=== PATIENT | male | born 1950 | race Caucasian/White ===

== ENCOUNTER 2016-10-25 12:49 | Inpatient (IN) ==
[2016-10-25] MEDS ORDERED: SODIUM CHLORIDE 0.9% 500 ML IV STA (14:29)
[2016-10-25] MEDS ORDERED: LORazepam 2 MG/1 ML VIAL IV STA (14:31)
[2016-10-25 14:41] LABS: Basophils % 0.4 % (0.0-0.8); Eosinophils # 0.3 10*3/uL (0.0-0.87); Eosinophils % 3.6 % (0.00-10.9); Hematocrit 42.2 VOL% (42.0-52.0); Hemoglobin 14.4 GM/DL (14.0-18.0); Immature Granulocytes % 0.4 %; Immature Granulocytes Absolute 0.03 #; Lymphocytes # 2.1 10*3/uL (1.4-4.0); Lymphocytes % 26.5 % (21.2-54.2); Mean Corpuscular HGB Conc 34.1 GM/DL (32-36); Mean Corpuscular Hemoglobin 29 PG (27-34); Mean Corpuscular Volume 86.3 FL (87-102); Mean Platelet Volume 9.3 FL (9.6-12.0); Monocytes # 0.6 10*3/uL (0.11-0.8); Monocytes % 7.6 % (1.7-12.7); Neutrophils # 4.9 10*3/uL (1.4-7.4); Neutrophils % 61.5 % (38.7-73.9); Platelet Count 237 T/CUMM (130-400); Red Blood Count 4.89 MC/CUMM (3.8-5.5); Red Cell Distribution Width 13.3 % (9.3-17.3)
--- NOTE | 2016-10-25 14:51 | Emergency Department Note ---
Ivan Levi Brittany, am scribing for, and in the presence of, Seth Nicole MD 14:37. Corey Levi Charles R, MD, personally performed the services described in this documentation, ascribed by Regi Love in my presence, and it is both accurate and complete 451 . Arrival - Arrival Chief Complaint: Nausea/Vomiting/Diarrhea Stated Complaint: nausea, vomiting, chills, pain, insomnia ED Nursing Triage Note: med withdrawal. +n/v, pain and chills onset monday. Mode of Arrival: Wheelchair Limitations: No Limitations Source: Patient, RN Notes Reviewed - History of Present Illness HPI Narrative: Patient is a 66 y/o white male presenting to the ED with c/o medication withdrawal which onset 2 days ago. Patient states that he was taking Suboxone and Ativan, but on Monday, October 23 he decided to quit taking both of these medications cold . He reports that he was on these two medications for quite some time and on Monday decided that he wanted to stop. He reports having chills, tremors of bilateral hands, and N/V. He denies having had any hallucinations or homicidal/suicidal ideation. Patient states that he was taking these medications r/t Chronic Pain. He states that he has been to rehabilitation center x2 in the past notably at [place] and [place], but he states "they didn't work." Patient reports history of taking Lortabs, but "I quit them before." After history and physical patient's family pulled us aside outside of the room to give more background information concerning patient's current situation. His daughter reports that back in March of 2016 when patient was found to have PNA she found out about his taking Suboxone. She states that patient has had a long standing history of substance abuse r/t depression. She notes that she has only been aware of the Suboxone, Ativan, and Lortab, but she and her mother are unsure as to what he could have in his home due to him living alone and his being secretive. She goes on to state that patient has had lack of hygiene, his home is disheveled appearing, noting he is very depressed. No other complaint/pain. Onset (ago): day(s) (2) Consistency: constant Allergies/Adverse Reactions: Allergies Allergy/AdvReac Type Severity Reaction Status Date / Time No Known Allergies Allergy Unverified 03/27/16 19:38 Home Medications: Home Medications Medication Instructions Recorded Confirmed Type Buprenorphine HCl/Naloxone HCl 1 each SL TID PRN 03/28/16 10/25/16 History [Buprenorphn-Naloxn 2-0.5 mg Sl] ALPRAZolam [Alprazolam] 1 mg PO QID PRN 10/25/16 10/25/16 History Cyclobenzaprine HCl 10 mg PO TID PRN 10/25/16 10/25/16 History SUMAtriptan TAB [Imitrex Tab] 100 mg PO ONCE PRN 10/25/16 10/25/16 History cloNIDine TAB [Catapres Tab] 0.3 mg PO BEDTIME 10/25/16 10/25/16 History Review of System - Review of System 12 point system: reviewed and no additional remarkable complaints except as stated - Review of System Constitutional: Present: chills. Absent: fever Eyes: Absent: vision change Head/Ears/Nose/Throat: Absent: nasal drainage, sore throat Respiratory: Absent: respiratory distress Cardiovascular: Absent: chest pain Gastrointestinal: Present: nausea, vomiting. Absent: abdominal pain, diarrhea Genitourinary male: Absent: urgency, dysuria, frequency Musculoskeletal: Absent: arm pain, back pain, leg pain, neck pain Skin: Absent: rash Neurological: Absent: headache Psychiatric: Absent: anxiety, depression, suicidal thoughts, homicidal thoughts , auditory hallucinations, visual hallucinations Medical,Surgical,& Family Hx - Medical History Cardio: History of: Hypertension Psychological: History of: Psychiatric/Substance Abuse Tx (was treated for pain medication habituation in the past) - Family History Family History: Reports;: Family Cancer - Social History Smoking Status: Never smoker Frequency of Alcohol Use: None Type of Drug Use: None Exam Vital Signs: Vital Signs Temperature 97.6 F 10/25/16 14:53 Pulse Rate 58 L 10/25/16 16:01 Respiratory Rate 10 L 10/25/16 16:01 Blood Pressure 136/73 10/25/16 16:01 O2 Sat by Pulse Oximetry 100 10/25/16 16:01 - General General appearance: alert, in no apparent distress, other (disheveled appearing white male, shaky) - Head Head exam: Present: atraumatic, normocephalic. Absent: normal inspection ( temporal wasting) - Eye Eye exam: Present: PERRL, EOMI. Absent: normal appearance (sunken orbits bilaterally) - ENT ENT exam: Present: normal exam, normal oropharynx - Neck Neck exam: Present: normal inspection, full ROM, trachea midline - Chest Chest inspection: Present: normal inspection, symmetric chest wall rise - Respiratory Respiratory exam: Present: normal lung sounds bilaterally - Cardiovascular Cardiovascular exam: Present: normal rhythm, tachycardia, normal heart sounds. Absent: regular rate - Abdominal Exam Abdominal exam: Present: soft, normal bowel sounds. Absent: tenderness - Extremities Exam Extremities exam: Absent: normal inspection (asterisks of bilateral hands) - Back Exam Back exam: Present: normal inspection - Neurological Exam Neurological exam: Present: alert, oriented X3, CN II-XII intact, other ( asterisks of bilateral hands). Absent: motor sensory deficit - Psychiatric Psychiatric exam: Present: normal affect, normal mood - Skin Skin exam: Present: warm (afebrile), dry, other (piloerection of the skin) Course - Consultations Consultation #1: Hospitalist will admit patient Time: 16:55 Results - Labs CBC & BMP: 10/25/16 14:30 10/25/16 14:30 Lab Results: I have reviewed the patients labs Labs: Laboratory Tests 10/25/16 14:30 WBC 8.0 RBC 4.89 Hgb 14.4 Hct 42.2 MCV 86.3 L MCH 29 MCHC 34.1 RDW 13.3 Plt Count 237 MPV 9.3 L Neut % (Auto) 61.5 Lymph % (Auto) 26.5 [place] % (Auto) 7.6 Eos % (Auto) 3.6 Baso % (Auto) 0.4 Neut # (Auto) 4.9 Lymph # (Auto) 2.1 [place] # (Auto) 0.6 Eos # (Auto) 0.3 Baso # (Auto) 0.0 Immature Gran % 0.4 Nucleated RBC % 0.0 Immature Gran # 0.03 Nucleated RBCs # 0.00 Laboratory Tests 10/25/16 10/25/16 14:30 14:30 INR 1.0 PT Patient/Control Mix 10.2 Salicylates < 2.8 L Laboratory Tests 10/25/16 10/25/16 14:30 14:30 Sodium 138 Potassium 4.0 Chloride 101 Carbon Dioxide 25 Anion Gap 16.0 H BUN 15 Creatinine 1.20 GFR Calculation 75 BUN/Creatinine Ratio 12.00 Glucose 97 Calculated Osmolality 275.7 Calcium 9.3 Magnesium 1.9 Total Bilirubin 1.10 H AST 11 ALT 21 Alkaline Phosphatase 86 Troponin I < 0.015 Total Protein 7.0 Albumin 3.9 Globulin 3.1 Albumin/Globulin Ratio 1.2 Free T4 1.42 TSH 3rd Generation 0.724 Prolactin 9.3 Serum Alcohol < 15 L Laboratory Tests 10/25/16 10/25/16 14:30 14:30 ESR Westergren 36 H Ammonia 19 Laboratory Tests 10/25/16 14:30 Urine Color Yellow Urine Appearance Clear Urine pH 8.0 Ur Specific [place] 1.008 Urine Protein Negative Urine Glucose (UA) Negative Urine Ketones 5 Urine Blood Moderate Urine Nitrate Negative Urine Bilirubin Negative Urine Urobilinogen < 2.0 H Urine Leukocytes Negative Urine RBC <1 - Diagnostic Findings Procedure: Chest x-ray: report reviewed by me (Interval improvement in the appearance of the interstitium of the lung paula. Large calcified density within the mediastinum, stable. Some prominence of the ascending aorta.), CT: report reviewed by me (CT Head: No acute intracranial process is seen.) Disposition Clinical Impression: Acute withdrawal from opiates, Acute withdrawal from benzodiazepine, Nausea & vomiting, Confusion Case discussed with: patient, patient's family Disposition: Still a Patient Condition: Stable Time of Disposition: 16:56
[2016-10-25 14:52] LABS: PT Patient Result 10.2 SECS
--- NOTE | 2016-10-25 14:54 | CT Report ---
CT of the head without contrast. Indication: Mental status changes. Altered level of consciousness. No previous study. There is bilateral basal ganglial calcification. The ventricle size and configuration is appropriate for the patient's age. There is no mass effect, midline shift, or area of hemorrhage. No cortical infarct is seen at this time. The calvarium is intact. The included paranasal sinuses and the mastoid air cells are clear. Impression: No acute intracranial process is seen. The CT exam was performed using one or more of the following dose reduction techniques: Automated exposure control, adjustment of the mA and/or kV according to patient size, or use of iterative reconstruction technique. PROCEDURE INTERPRETED AT [facility] DEPARTMENT OF RADIOLOGY Final Report Signed by: Dr. Viviana Terrazas
--- NOTE | 2016-10-25 14:55 | XRay Report ---
Portable chest. Indication: Altered mental status. Comparison: March 31, 2016. The heart is normal in size. There is prominence of the ascending aorta. The pulmonary vasculature is normal. Patchy interstitial prominence shows interval improvement. Calcified density in the mediastinum remain stable. Degenerative changes of the spinal column and shoulders. Impression: Interval improvement in the appearance of the interstitium of the lung paula. Large calcified density within the mediastinum, stable. Some prominence of the ascending aorta. PROCEDURE INTERPRETED AT [facility] DEPARTMENT OF RADIOLOGY Final Report Signed by: Dr. Viviana Terrazas
[2016-10-25 15:07] LABS: Alanine Aminotransferase 21 U/L (16-61); Albumin 3.9 G/DL (3.4-5.0); Alkaline Phosphatase 86 U/L (45-117); Aspartate Amino Transferase 11 U/L (0-37); Blood Urea Nitrogen 15 MG/DL (7-18); Calcium 9.3 MG/DL (8.5-10.1); Free T4 (Free Thyroxine) 1.42 NG/DL (0.76-1.46); Glucose 97 MG/DL (74-106); Magnesium 1.9 MG/DL (1.8-2.4); Osmolality,Calculated 275.7 MOS/KG (273-304); Sodium 138 MMOL/L (136-145); Thyroid Stimulating Hormone 0.724 uIU/ml (0.358-3.74); Troponin I Only < 0.015 NG/ML (0.00-0.045)
[2016-10-25] MEDS ORDERED: LORazepam 2 MG/1 ML VIAL ONE (15:15)
[2016-10-25 15:45] LABS: Ammonia 19 UMOL/L (11-32)
[2016-10-25 15:47] LABS: Sedimentation Rate-Westergren 36 MM/HR (0-20)
[2016-10-25 16:19] LABS: Apearance,Urine CLEAR (Clear); Bilirubin,Urine Negative (Negative); Blood, Urine Moderate mg/dL (Negative); Glucose,Urine (UA) Negative (Negative); Ketones,Urine 5 mg/dL (Negative); Nitrite,Urine Negative (Negative); Protein,Urine Negative; RBC,Urine <1 /HPF (0-4); Urine Color Yellow (Yellow); Urine Specific Gravity 1.008 (1.001-1.035); Urine Urobilinogen < 2.0 EU/DL (0.2-1.0)
--- NOTE | 2016-10-25 18:20 | Hospitalist History & Physical ---
<Harrison Weller - Last Filed: 10/25/16 17:44> Assessment and Plan - Time spent with patient Time spent with patient: Greater than 30 minutes (1) Opioid withdrawal Status: Acute Assessment and plan: Patient quit Suboxone and Ativan cold turkey on Monday. Has been experiencing chills and tremors ever since. Will admit for observation overnight. IV fluids. Ativan PRN. Psych eval. Patient's daughter expressed desire to get patient into an inpatient rehab program. Patient voices that his is ready to quit and wants the help. Current Visit: Yes (2) Hypertension Status: Acute Assessment and plan: Patient reports that he takes clonidine daily for hypertensive management. Hold antihypertensives right now as his pressure is low. Continue to monitor BP and adjust medications accordingly. Current Visit: Yes (3) Major depressive disorder Status: Acute Assessment and plan: Intiate antidepressant therapy. Current Visit: Yes History of Present Illness Chief complaint: Opioid withdrawals History of present illness: Mr. Rodriguez is a 66 year old white male with a past medical history significant for hypertension, depression and opioid addiction who presents to the ED for further evaluation of withdrawal-type symptoms having onset Monday. The patient is a long time opioid abuser who was started on Suboxone and Ativan some 5 years ago. He decided on Monday that he would stop his Suboxone and Ativan cold turkey and has been experiencing withdrawal symptoms ever since. The patient's daughter is at bedside and reports that the patient is a of 20 years, lives alone and has been depressed for a while. She also notes that she and her family just recently found out about his Suboxone use in March on his last hospital admission. On exam, the patient reports that he is tired of depending on this medicine and just wants to quit. He confirms chills, tremors, sweating and anhedonia. He denies chest pain, headache, nausea and vomiting. Vital signs are stable. Lab work is unremarkable for infection, hemodynamic instability or electrolyte abnormalities. After discussion with Dr. Nicole and Dr. Hassan, it was agreed the the patient would be admitted overnight for observation on a monitored bed. It would be in the patient's best interest to be seen by a psychiatrist and counseled on appropriate tapering of addictive substances. The patient is a full code. His home medications have been reviewed and reconciled. Home Medications Medication Instructions Recorded Confirmed Type Buprenorphine HCl/Naloxone HCl 1 each SL TID PRN 03/28/16 10/25/16 History [Buprenorphn-Naloxn 2-0.5 mg Sl] ALPRAZolam [Alprazolam] 1 mg PO QID PRN 10/25/16 10/25/16 History Cyclobenzaprine HCl 10 mg PO TID PRN 10/25/16 10/25/16 History SUMAtriptan TAB [Imitrex Tab] 100 mg PO ONCE PRN 10/25/16 10/25/16 History cloNIDine TAB [Catapres Tab] 0.3 mg PO BEDTIME 10/25/16 10/25/16 History Allergies Allergy/AdvReac Type Severity Reaction Status Date / Time No Known Allergies Allergy Unverified 03/27/16 19:38 Medical,Surgical,& Family Hx - Medical History Cardio: History of: Hypertension Psychological: History of: Psychiatric/Substance Abuse Tx (was treated for pain medication habituation in the past) - Family History Family History: Reports;: Family Cancer - Social History Smoking Status: Never smoker Frequency of Alcohol Use: None Type of Drug Use: None Marital Status: Lives With:: Alone Functional capacity: independent ambulation 12 point system: reviewed and no additional remarkable complaints except as stated Exam - Constitutional Vitals: Period Temp Pulse Resp BP Sys/Bond Pulse Ox Last 24 Hr 97.6 F-97.6 F 50-71 10-20 136-157/71-86 99-100 General appearance: normal weight, disheveled - Head Head exam: Present: normal inspection, normocephalic, atraumatic - Eye Eye exam: Present: EOMI Pupils: Present: YONG - ENT ENT exam: Present: normal exam, normal external ear exam - Neck Neck exam: Present: normal inspection. Absent: lymphadenopathy, tenderness, thyromegaly - Respiratory Respiratory exam: Present: clear to auscultation bilaterally. Absent: rhonchi, wheezes - Cardiovascular Cardiovascular exam: Present: regular rate and rhythm. Absent: carotid bruit, irregular rhythm - GI/Abdominal GI/Abdominal exam: Present: normal bowel sounds, soft. Absent: ascites, distended, rebound - Extremities Exam Extremities exam: Present: normal inspection, normal capillary refill. Absent: edema - Neurological Exam Neurological exam: Present: alert, oriented X3, CN II-XII intact - Psychiatric Psychiatric exam: Present: anxious, depressed, flat affect - Skin Skin exam: Present: normal color, warm, dry, intact Results - Labs CBC & BMP: 10/25/16 14:30 10/25/16 14:30 Lab Results: I have reviewed the past 24 hour labs <Atilio Hassan - Last Filed: 10/25/16 19:51> History of Present Illness History of present illness: Mr. Rodriguez is a 66 year old male Exam - Constitutional Vitals: Period Temp Pulse Resp BP Sys/Bond Pulse Ox Last 24 Hr 97.6 F-97.6 F 50-76 9-20 98-157/63-86 99-100 Results - Labs CBC & BMP: 10/25/16 14:30 10/25/16 14:30
[2016-10-25] MEDS ORDERED: ACETAMINOPHEN 325 MG TABLET PO PRN (18:29)
[2016-10-25] MEDS ORDERED: CYCLOBENZAPRINE 10 MG TABLET PO PRN (18:32)
[2016-10-25] MEDS ORDERED: LOPERAMIDE 2 MG CAPSULE PO PRN (18:33)
[2016-10-25] MEDS ORDERED: PROMETHAZINE 25 MG TABLET PO PRN (18:33)
[2016-10-25] MEDS ORDERED: DICYCLOMINE 10 MG CAPSULE PO PRN (18:34)
[2016-10-25] MEDS: SODIUM CHLORIDE 0.9% 1,000 ML IV SCH (19:32)
[2016-10-25] MEDS: ESCITALOPRAM 10 MG TABLET PO SCH (20:04)
[2016-10-25] MEDS: ENOXAPARIN 40 MG/0.4 ML SYRINGE SUBCUT SCH (20:05)
[2016-10-25] MEDS: ALPRAZolam 0.5 MG TABLET PO PRN (20:38)
[2016-10-25] MEDS: ZALEPLON 5 MG CAPSULE PO PRN ×2 (21:20→22:19)
[2016-10-26] MEDS: ALPRAZolam 0.5 MG TABLET PO PRN (02:38)
[2016-10-26 04:30] LABS: Basophils % 0.5 % (0.0-0.8); Eosinophils # 0.2 10*3/uL (0.0-0.87); Eosinophils % 3.2 % (0.00-10.9); Hematocrit 34.6 VOL% (42.0-52.0); Hemoglobin 11.6 GM/DL (14.0-18.0); Immature Granulocytes % 0.3 %; Immature Granulocytes Absolute 0.02 #; Lymphocytes # 1.9 10*3/uL (1.4-4.0); Lymphocytes % 25.7 % (21.2-54.2); Mean Corpuscular HGB Conc 33.5 GM/DL (32-36); Mean Corpuscular Hemoglobin 30 PG (27-34); Mean Platelet Volume 9.6 FL (9.6-12.0); Monocytes # 0.7 10*3/uL (0.11-0.8); Monocytes % 9.3 % (1.7-12.7); NRBC # 0.02 10*3/uL; Neutrophils # 4.6 10*3/uL (1.4-7.4); Platelet Count 221 T/CUMM (130-400); Red Blood Count 3.93 MC/CUMM (3.8-5.5); Red Cell Distribution Width 13.4 % (9.3-17.3); White Blood Count 7.6 T/CUMM (4-12)
[2016-10-26] MEDS: SODIUM CHLORIDE 0.9% 1,000 ML IV SCH ×2 (04:49→16:01)
[2016-10-26 05:12] LABS: Albumin 2.8 G/DL (3.4-5.0); Bilirubin,Total 0.8 MG/DL (0.2-1.0); Calcium 8.3 MG/DL (8.5-10.1); Osmolality,Calculated 276.5 MOS/KG (273-304); Potassium 3.9 MMOL/L (3.5-5.1); Total Protein 5.4 G/DL (6.4-8.3)
[2016-10-26] MEDS ORDERED: SUMAtriptan 6 MG/0.5 ML VIAL SUBCUT ONE (09:22)
[2016-10-26] MEDS ORDERED: LORazepam 1 MG TABLET PO PRN (09:22)
[2016-10-26] MEDS ORDERED: KETOROLAC 15 MG/1 ML VIAL IV PRN (09:22)
--- NOTE | 2016-10-26 11:04 | Discharge Summary ---
<Milton Ortiz - Last Filed: 10/27/16 08:14> Hospital Course - Hospital Course Hospital Course: Mr. Rodriguez is a 66 year old white male with a history of opioid dependence, htn , pneumonia, and major depressive disorder that presented to the ED on 10/25 for further evaluation of withdrawal symptoms that began a day prior. The patient has a history of opioid abuse and has reportedly been on xanax 1 mg po qid and Suboxone for about 5 yrs. Pt is a , lives alone, and is apparently very depressed. He has sought treatment at [facility], [place], and [place] but the treatments have not worked. The patient decided on Monday that he wanted to quit "cold turkey". Since that time patient reported that he began experiencing chills and tremors along with sweat and anhedonia. Pt. was admitted overnight for observation. support services manager were consulted to evaluate patient. Inpatient services for drug use were refused by patient. Pt. received Drug & Alcohol Hotline list and AA Meeting information. Pt. will be discharged home today on a klonopin taper. Spoke with Dr. Mosqueda at [place] and he recommended Klonopin taper of 0.5 mg 3 times daily for 2 days then twice daily for 2 days then once a day for 2 days then off. F/U with Dr. Serrato in one week. He will live with his daughter until he is off the Klonopin. Patients blood pressure has been excellent here but I wrote him for a prn cozaar if systolic blood pressure greater than 140. Patient seen and examined. Hospital course reviewed and edited. Discharge Plan - Discharge Data Disposition: Disch To Home/Self Care - Discharge Medications New clonazePAM TAB [KlonoPIN] 0.5 mg PO TID #20 tablet Escitalopram [Lexapro] 10 mg PO BEDTIME #30 tablet Losartan [Cozaar] 25 mg PO DAILY PRN #30 tablet PRN Reason: Hypertension Pramipexole [Mirapex] 0.5 mg PO BEDTIME #30 tablet Loperamide Cap [Imodium Cap] 2 mg PO Q6H PRN #10 capsule PRN Reason: Diarrhea Changed SUMAtriptan TAB [Imitrex Tab] 100 mg PO DAILY #30 tablet Discontinued Buprenorphine HCl/Naloxone HCl [Buprenorphn-Naloxn 2-0.5 mg Sl] 1 each SL QID PRN PRN Reason: Pain cloNIDine TAB [Catapres Tab] 0.3 mg PO BEDTIME ALPRAZolam [Alprazolam] 1 mg PO QID PRN PRN Reason: NERVES - Follow Up or Referral Follow Up: dr yamini [Other] - 1 Week - Forms/Instructions Exam - Constitutional Vitals: Period Temp Pulse Resp BP Sys/Bond Pulse Ox Last 24 Hr 97.4 F-98.6 F 65-84 17-21 117-145/63-81 97-100 Discharge Results Procedures and tests throughout hospitalization: Pending Orders 10/25/16 19:57 Blood Culture Stat Labs on day of discharge: Preliminary micro results at discharge 10/25/16 19:57 Blood Culture - Preliminary Blood No growth at 1 day 10/25/16 19:57 Blood Culture - Preliminary Blood No growth at 1 day DS: Provider Date of admission: 10/25/16 17:40 Primary care physician: Toro Serrato Attending physician on admission: Atilio Hassan MD Discharging clinician: Milton Ortiz NP <Tiffanie Cochran - Last Filed: 10/27/16 09:49> Hospital Course - Time spent with patient Time with patient DS: Less than 30 minutes (25 min) Diagnosis - Discharge Diagnosis (1) Nausea & vomiting Status: Acute (2) Benzodiazepine dependence Status: Acute (3) Opioid withdrawal Status: Acute (4) Major depressive disorder Status: Acute Discharge Plan - Discharge Data Condition at Discharge: Stable Discharge Diet: heart healthy Activity: resume usual activities as tolerated Hygiene: no restrictions Weight Bearing at Discharge: full weight bearing Driving: not until seen by doctor - Forms/Instructions Additional Discharge Instructions: cozaar 25 mg po daily only if systolic greater than 140. Exam - Constitutional General appearance: normal weight, no acute distress - Respiratory Respiratory exam: Present: clear to auscultation bilaterally. Absent: rhonchi, wheezes - Cardiovascular Cardiovascular exam: Present: regular rate and rhythm. Absent: systolic murmur - GI/Abdominal GI/Abdominal exam: Present: normal bowel sounds, soft. Absent: tenderness - Extremities Exam Extremities exam: Present: normal inspection, normal capillary refill - Neurological Exam Neurological exam: Present: alert, oriented X3 - Psychiatric Psychiatric exam: Present: normal affect, normal mood
--- NOTE | 2016-10-26 12:35 | Hospitalist Progress Note ---
Assessment and Plan (1) Nausea & vomiting Status: Acute Assessment and plan: secondary to withdrawal improved, cont IV fluids Current Visit: Yes (2) Benzodiazepine dependence Status: Acute Assessment and plan: wean off xanax using klonopin and dictated under HPI Current Visit: Yes (3) Opioid withdrawal Status: Acute Assessment and plan: toradol prn discomfort Current Visit: Yes (4) Major depressive disorder Status: Acute Assessment and plan: lexapro Current Visit: Yes Hospitalist: Subjective Interval history: Spoke with patient and his daughter. Does not want detox at [place]. I spoke with Dr. Mosqueda from [place] and he would use klonopin to detox him off his Xanax. He would do 0.5 mg p.o. 3 times daily 2 days then twice daily 2 days then once a day 2 days then off. Patient does not want to go back on the Suboxone for taper he would rather just tolerate the discomfort. Exam - Constitutional Vitals: Period Temp Pulse Resp BP Sys/Bond Pulse Ox Last 24 Hr 97.4 F-99 F 50-89 9-20 94-157/54-86 98-100 Exam: Heart Rate-[RRR] Lungs-[CTAB] GI-[+bs soft, NT] Ext-[no edema] Neuro [Motor 5/5], [alert and oriented times 3], alittle shaky psych [normal mood and affect] General [no acute distress] Results - Labs CBC & BMP: 10/26/16 03:51 10/26/16 03:51 Lab Results: I have reviewed the past 24 hour labs
[2016-10-26] MEDS: clonazePAM 0.5 MG TABLET PO SCH ×3 (12:43→20:20)
[2016-10-26] MEDS: FAMOTIDINE 20 MG TABLET PO SCH ×2 (12:43→20:19)
[2016-10-26] MEDS: ENOXAPARIN 40 MG/0.4 ML SYRINGE SUBCUT SCH (20:18)
[2016-10-26] MEDS: LORATADINE 10 MG TABLET PO SCH (20:20)
[2016-10-26] MEDS: ESCITALOPRAM 10 MG TABLET PO SCH (20:20)
[2016-10-26] MEDS ORDERED: ZALEPLON 5 MG CAPSULE PO SCH (21:00)
[2016-10-26] MEDS ORDERED: PRAMIPEXOLE 0.25 MG TABLET PO SCH (21:00)
[2016-10-27] MEDS: SODIUM CHLORIDE 0.9% 1,000 ML IV SCH (01:53)
[2016-10-27] MEDS: FAMOTIDINE 20 MG TABLET PO SCH (09:13)
[2016-10-27] MEDS: LORATADINE 10 MG TABLET PO SCH (09:13)
[2016-10-27] MEDS: clonazePAM 0.5 MG TABLET PO SCH (09:13)
[2016-10-27 11:27] VITALS: BP 135/72
== END 2016-10-27 12:55 | disposition home or self-care (01) | DRG 897 ==
LOC: N.ED 12:49 → N.EDINP 12:49 → SUATTDRO 17:40 → N.EDINP 19:01 → N.5E 19:40
PROVIDERS: ADMIT Internal Medicine; ATTEND Internal Medicine